=== PATIENT | female | born 1930 | race Caucasian/White ===

== ENCOUNTER 2018-02-26 08:16 | Emergency (ER) | payer MEDICARE ==
[~2018-02-26] VITALS: Ht 154.9 cm; Wt 96.2 kg
[~2018-02-26 08:16] MED LIST: ACTOS15 MG PO; B-122500 MCG PO; CENTRUM SILVER1 EAC4 PO; ECOTRIN325 MG PO; FISH OIL 1,0001 EAC1 PO; HYDROCHLOROTHIA25 MG PO; LEVOTHYROXINE50 MCG PO; LUMIGAN2.5 M1 OP; METOPROLOL TART25 MG PO; NORVASC5 MG PO; VITAMIN D1000 UNIT PO; XARELTO10 MG PO
--- OUTSIDE RECORDS SUMMARY | 2018-02-26 08:19 | XMS REPORT ---
Author Author [facility] Address Unknown Phone Unavailable Care Team Providers Care Caving Guide Name Role Phone PHI CORTEZ Unavailable Unavailable Problems This patient has no known problems. Allergies, Adverse Reactions, Alerts This patient has no known allergies or adverse reactions. Medications This patient has no known medications. Results Test Description Test Time Test Comments Text Results Atomic Results Result Comments MRI KNEE LEFT WO [place] [address] Patient Name: GLENN SPEARS MR #: [id number] : 1930 Age/Sex: 87/F Req # : [id number] [facility] Physician: PHI CORTEZ MD Ordered by: PHI CORTEZ MD Report #: [id number] Location: [facility] Room/Bed: [facility] _ Procedure: [id number] MRI/MRI KNEE LEFT WO Exam Date: 08/14/17 Exam Time: 1415 REPORT STATUS: Signed TECHNIQUE: Magnetic resonance imaging of the LEFT KNEE was performed WITHOUT injected contrast. HISTORY: Left knee effusion, cellulitis, pain, swelling, history of sarcoidosis COMPARISON: None available. FINDINGS: LIGAMENTS AND TENDONS: ACL: Intact fibers with intrasubstance degeneration of the inferior half. PCL: Intact Collateral ligaments: The medial collateral ligament is intact. Scarring of the proximal fibular collateral ligament. Iliotibial band: Unremarkable Popliteal tendon: Intact Extensor mechanism: Intact JOINT: Menisci: Medial: Mild degenerative fraying of the free margin. Lateral: Intact Articular Cartilage: Medial Compartment: High-grade erosion of the weightbearing cartilage. Lateral Compartment: Low-grade erosion of the weightbearing cartilage. Patellofemoral Compartment: Full-thickness erosion of the medial patellar facet. Joint Fluid: A large nonspecific joint effusion with synovitis. Signal void partially limits evaluation in the suprapatellar region. BONES: No focal or infiltrative bone marrow replacing abnormality. No acute fracture. SOFT TISSUES: Mild nonspecific superficial soft tissue edema. No abscess. IMPRESSION: 1. Large nonspecific joint effusion and synovitis. Consider aspiration for further evaluation given the provided history and accompanying medical note. 2. 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 Signed by: Dr. Fe Morton M.D. on 08/14/2017 5:08 PM Dictated By: FE MORTON DO 07 Transcribed By: BRUNA on 08/14/171707 COPY TO: PHI CORTEZ MD ANKLE 3+ VIEWS LEFT [place] [address] Patient Name: GLENN SPEARS MR #: [id number] : 1930 Age/Sex: 87/F Req #: [id number] [facility] Physician: Ordered by: ROBINSON CUELLAR MD Report #: [id number] Location: ER Room/Bed: Procedure: [id number] DX/ANKLE 3+ VIEWS LEFT Exam Date: 08/11/17 Exam Time: 824 REPORT STATUS: Signed PROCEDURE: ANKLE 3 + VIEWS LEFT TECHNIQUE: AP, lateral and oblique views left ankle INDICATION: Left ankle pain COMPARISON: None. FINDINGS: The left ankle image regional skeleton are intact and in anatomic alignment. Joint space is maintained. Regional soft tissues are intact, with mild swelling. Moderate plantar calcaneal spur. Regional arteriosclerosis. CONCLUSION: Plantar enthesopathy. Otherwise, no acute abnormality or other conspicuous etiology for pain. Dictated by: Rebecca Maher M.D. on 08/11/2017 at 8:57 Electronically approved by: Rebecca Maher M.D. on 08/11/2017 at 8:57 Dictated By: REBECCA MAHER MD 6 Transcribed By: PIERRE on 08/11/17856 COPY TO: ROBINSON CUELLAR MD KNEE LEFT THREE VIEWS [place] [address] Patient Name: GLENN SPEARS MR #: [id number] : 1930 Age/Sex: 87/F Req #: [id number] Adm Physician: Ordered by: ROBINSON CUELLAR MD Report #: [id number] Location: ER Room/Bed: Procedure: [id number] DX/KNEE LEFT THREE VIEWS Exam Date: 08/11/17 Exam Time: 824 REPORT STATUS: Signed PROCEDURE: KNEE LEFT THREE VIEWS TECHNIQUE: AP, lateral and oblique views left knee INDICATION: Left knee pain for 3 days COMPARISON: None. FINDINGS: Mild 3 compartment joint space narrowing with mild to moderate marginal osteophytosis. Large suprapatellar effusion. Small enthesophyte at the quadriceps insertion on the patella. Regional arteriosclerosis. Soft tissues intact. CONCLUSION: Moderate 3 compartment degenerative change with large suprapatellar effusion. Dictated by: Rebecca Maher M.D. on 08/11/2017 at 8:56 Electronically approved by: Rebecca Maher M.D. on 08/11/2017 at 8:56 Dictated By: REBECCA MAHER MD 5 Transcribed By: PIERRE on 08/11/17855 COPY TO: ROBINSON CUELLAR MD
[2018-02-26] MEDS ORDERED: ALLOPURINOL100 MG PO (08:51)
[2018-02-26] MEDS ORDERED: FUROSEMIDE40 MG PO (08:51)
[2018-02-26] MEDS ORDERED: LEVOTHYROXINE50 MCG PO (08:51)
[2018-02-26] MEDS ORDERED: VITAMIN C1000 MG PO (08:51)
[2018-02-26] MEDS ORDERED: CENTRUM SILVER1 EAC3 PO (08:51)
[2018-02-26] MEDS ORDERED: KLOR-CON 1010 MEQ PO (08:51)
[2018-02-26] MEDS ORDERED: FISH OIL 500 M1 EAC1 PO (08:51)
[2018-02-26] MEDS ORDERED: VITAMIN D31000 UNIT PO (08:51)
[2018-02-26] MEDS ORDERED: [UNRECOGNIZED DRUG - OTHER] (08:51)
[2018-02-26] MEDS ORDERED: VITAMIN B-121000 MCG PO (08:51)
[2018-02-26 08:59] LABS: BASOPHILS % 0.8 % (0.0-1.0); EOSINOPHILS # (AUTO) 0.2 (0.0-0.4); EOSINOPHILS % 3.6 % (0.0-6.0); HEMATOCRIT 38.1 % (34.2-44.1); HEMOGLOBIN 12.9 g/dL (12.0-16.0); LYMPHOCYTES # (AUTO) 1.2 (1.0-3.2); LYMPHOCYTES % 25.6 % (18.0-39.1); MEAN CORPUSCULAR HEMOGLOBIN 32.8 pg (28-32); MEAN CORPUSCULAR HGB CONC 33.9 g/dL (31-35); MEAN CORPUSCULAR VOLUME 96.9 fL (81-99); MONOCYTES # (AUTO) 0.6 (0.2-0.8); MONOCYTES % 11.9 % (4.4-11.3); NEUTROPHILS # (AUTO) 2.7 (2.1-6.9); NEUTROPHILS % 57.7 % (38.7-80.0); PLATELET COUNT 170 x10e3/uL (140-360); RED BLOOD COUNT 3.93 x10e6/uL (3.6-5.1); RED CELL DISTRIBUTION WIDTH 15.5 % (11.7-14.4)
[2018-02-26 09:13] LABS: ANION GAP 14.5 mmol/L (8-16); CALCIUM 10.7 mg/dL (8.4-10.2); CREATININE, SERUM 1.03 mg/dL (0.57-1.11); POTASSIUM 3.5 mmol/L (3.5-5.1)
[2018-02-26 09:31] LABS: CREATINE KINASE MB 0.8 ng/mL (0-5.0)
--- NOTE | 2018-02-26 09:45 | Diagnostic Imaging Report ---
Exam: Head CT without contrast History: Trauma, fall, hit head Comparison studies: None Technique: Axial images were obtained from the skull base to the vertex. Coronal and sagittal images reconstructed from the axial data. Intravenous contrast: None Findings: Scalp: No abnormalities. No gross hematoma Bones: No fractures, blastic or lytic lesions. Brain sulci: Mildly prominent. Ventricles: Mild extra dilatation. No hydrocephalus. Extra-axial spaces: No masses, no fluid collection. Parenchyma: No mass, acute hemorrhage or acute cortical vascular insults. A few scattered and confluent hypodensities in the supratentorial white matter are nonspecific but most compatible with chronic small vessel ischemic changes. 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 Sellar/suprasellar region: No abnormalities. Craniocervical junction: Patent foramen magnum. No Chiari one malformation. Incidental findings: Atherosclerotic calcifications in the carotid siphons. IMPRESSION: No acute abnormalities. Chronic findings: 1. Mild generalized volume loss. 2. 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 3. Moderate chronic microvascular ischemic changes. Signed by: Dr. Leobardo Kelly M.D. on 02/26/2018 9:41 AM
[2018-02-26 10:21] LABS: CLARITY,URINE SL CLOUDY (CLEAR); COLOR,URINE YELLOW (YELLOW)
[2018-02-26 10:22] LABS: BILIRUBIN,URINE NEGATIVE (NEGATIVE); KETONES,URINE NEGATIVE (NEGATIVE); LEUKOCYTE ESTERASE ,URINE NEGATIVE (NEGATIVE); NITRITE,URINE NEGATIVE (NEGATIVE); PROTEIN,URINE DIPSTICK NEGATIVE (NEGATIVE); URINE UROBILINOGEN 0.2 mg/dL (0.2 - 1)
[2018-02-26 10:33] LABS: BACTERIA,URINE RARE /HPF; EPITHELIAL CELLS,URINE FEW /LPF
[2018-02-26 12:26] VITALS: BP 120/79
== END 2018-02-26 12:30 | disposition home or self-care (01) ==
LOC: ER 08:16
DX: S00.83XA Contusion of other part of head, initial encounter (principal); W06.XXXA Fall from bed, initial encounter; Y93.84 Activity, sleeping; Y92.003 Bedroom of unspecified non-institutional (private) residence as the place of occurrence of the external cause; I10 Essential (primary) hypertension; E11.9 Type 2 diabetes mellitus without complications; I48.91 Unspecified atrial fibrillation
CPT/HCPCS: 36415; 70450; 80048; 81001; 82550; 82553; 84484; 85025; 87086; 93005; 99284